=== PATIENT | female | born 1990 | race American Indian/Alaskan Native ===

== ENCOUNTER 2017-05-28 10:03 | Emergency (ER) | payer SELFPAY ==
[2017-05-28 10:13] VITALS: BMI 23.4
[2017-05-28 10:14] VITALS: TEMP 98.2
[2017-05-28 10:37] LABS: HCG,QUALITATIVE URINE NEGATIVE (NEGATIVE)
--- NOTE | 2017-05-28 10:40 | C.PDOC ---
History Of Present Illness 26 y/o female presents to ED with complaints of vaginal spotting and cramping for 2 days. Patient states she thinks she may be but has not taken previous tests. Patient denies fever, chills, n/v/d or any other complaints at this time. Time Seen by Provider: 05/28/17 10:16 Chief Complaint (Nursing): Female Genitourinary History Per: Patient History/Exam Limitations: no limitations Onset/Duration Of Symptoms: Days Current Symptoms Are (Timing): Still Present Quality Of Discomfort: Cramping Past Medical History Reviewed: Historical Data, Nursing Documentation, Vital Signs Vital Signs: Last Vital Signs Temp 98.2 F 05/28/17 11:27 Pulse 75 05/28/17 11:27 Resp 18 05/28/17 11:27 BP 104/70 05/28/17 11:27 Pulse Ox 99 05/28/17 11:27 - Medical History PMH: Asthma - [facility] Procedures EXTRACTION OF POC, LOW CERVICAL, OPEN APPROACH (04/02/16) Family History: States: Unknown Family Hx - Social History Hx Alcohol Use: No Hx Substance Use: No - Immunization History Hx Tetanus Toxoid Vaccination: No Hx Influenza Vaccination: No Hx Pneumococcal Vaccination: No Review Of Systems Except As Marked, All Systems Reviewed And Found Negative. Constitutional: Negative for: Fever, Chills Gastrointestinal: Negative for: Nausea, Vomiting, Diarrhea Genitourinary: Positive for: Vaginal Bleeding. Negative for: Dysuria Skin: Negative for: Rash Physical Exam - Physical Exam Appears: Non-toxic, No Acute Distress Skin: Normal Color, Warm Head: Atraumatic, Normacephalic Oral Mucosa: Moist Cardiovascular: Rhythm Regular, No Murmur Respiratory: Normal Breath Sounds, No Rales, No Rhonchi, No Wheezing Gastrointestinal/Abdominal: Tenderness (Mild suprapubic), No Guarding, No Rebound Extremity: Normal ROM, Capillary Refill (<2 seconds) Neurological/Psych: Oriented x3 ED Course And Treatment - Laboratory Results Urine POC: Negative O2 Sat by Pulse Oximetry: 100 (RA) Pulse Ox Interpretation: Normal Progress Note: Treated with macrobid 100 mg PO. On re-evaluation abdomen soft non-tender Medical Decision Making Medical Decision Making: Plan: test will be given if negative patient will be discharged home Progress: test was negative, patient will be discharge home and advised to follow up with OBGYN. Disposition Counseled Patient/Family Regarding: Studies Performed, Diagnosis, Need For Followup, Rx Given - Disposition Referrals: [facility] [Outside] [facility] [Outside] Disposition: HOME/ ROUTINE Disposition Time: 11:30 Condition: STABLE Additional Instructions: Return to ED if any increase symptoms Prescriptions: Nitrofurantoin Macrocrystals [Macrobid] 1 cap PO BID #14 cap Instructions: Urinary Tract Infection in Women (ED) - POA Present On Arrival: None - Clinical Impression Clinical Impression: UTI (urinary tract infection) - Scribe Statement The provider has reviewed the documentation as recorded by the Scribyariel Li All medical record entries made by the Donaldibyariel were at my direction and personally dictated by me. I have reviewed the chart and agree that the record accurately reflects my personal performance of the history, physical exam, medical decision making, and the department course for this patient. I have also personally directed, reviewed, and agree with the discharge instructions and disposition.
[2017-05-28 11:01] LABS: SQUAMOUS EPITHIAL 4 /hpf (0-5); URINE BACTERIA RARE (<OCC); URINE BILIRUBIN NEGATIVE (NEGATIVE); URINE BLOOD 3+ (NEGATIVE); URINE CLARITY Hazy (Clear); URINE COLOR Yellow (YELLOW); URINE GLUCOSE (UA) NORMAL (Normal); URINE LEUKOCYTE ESTERASE 2+ Leu/uL (Negative); URINE NITRATE NEGATIVE (NEGATIVE); URINE PROTEIN 2+ mg/dL (NEGATIVE); URINE UROBILINOGEN NORMAL mg/dL (0.2-1.0)
[2017-05-28 11:29] VITALS: BP 104/70; PULSE 75; RESP 18
[2017-05-28 16:27] VITALS: O2SAT 100
== END 2017-05-28 11:28 | disposition home or self-care (01) ==
LOC: C.ER 10:03
DX: N39.0 Urinary tract infection, site not specified (principal)

== ENCOUNTER 2018-07-05 13:51 | Emergency (ER) | payer MEDICAID ==
[2018-07-05 13:51] VITALS: BMI 23.4
[2018-07-05 14:08] VITALS: TEMP 98.1
--- NOTE | 2018-07-05 15:08 | C.PDOC ---
History Of Present Illness 27 year old female, , presents to ED for evaluation of LLQ abdominal pain that developed 2 days ago. Notes her last menstrual period was in end of April. Pt is aware that she is but is unsure of how far along the is, states she has not had an ultrasound yet. Otherwise, denies n/v/d , fever, chills, back pain, dysuria, vaginal bleeding, or vaginal discharge. Time Seen by Provider: 07/05/18 14:10 Chief Complaint (Nursing): Abdominal Pain History Per: Patient History/Exam Limitations: no limitations Onset/Duration Of Symptoms: Days (2) Current Symptoms Are (Timing): Still Present Location Of Pain/Discomfort: LLQ Radiation Of Pain To:: None Quality Of Discomfort: "Pain" Associated Symptoms: denies: Nausea, Vomiting, Diarrhea, Loss Of Appetite, Back Pain, Constipation, Urinary Symptoms Exacerbating Factors: None Alleviating Factors: None Recent travel outside of the [place]: No Additional History Per: Patient Abnormal Vaginal Bleeding: No Last Menstral Period: "end of April" : 2 Para: 1 Past Medical History Reviewed: Historical Data, Nursing Documentation, Vital Signs Vital Signs: Last Vital Signs Temp 98.1 F 07/05/18 16:47 Pulse 66 07/05/18 16:47 Resp 16 07/05/18 16:47 BP 109/71 07/05/18 16:47 Pulse Ox 97 07/05/18 16:49 - Medical History PMH: Asthma Denies: Chronic Kidney Disease Surgical History: Denies: Appendectomy - [facility] Procedures EXTRACTION OF POC, LOW CERVICAL, OPEN APPROACH (04/02/16) Family History: States: Unknown Family Hx - Social History Hx Alcohol Use: No Hx Substance Use: No - Immunization History Hx Tetanus Toxoid Vaccination: No Hx Influenza Vaccination: No Hx Pneumococcal Vaccination: No Review Of Systems Except As Marked, All Systems Reviewed And Found Negative. Constitutional: Negative for: Fever, Chills Gastrointestinal: Positive for: Abdominal Pain (LLQ). Negative for: Nausea, Vomiting, Diarrhea, Constipation Genitourinary: Negative for: Dysuria, Frequency, Hematuria, Vaginal Discharge, Vaginal Bleeding Musculoskeletal: Negative for: Back Pain Physical Exam - Physical Exam Appears: Non-toxic, No Acute Distress Skin: Normal Color, Warm, Dry Head: Atraumatic, Normacephalic Eye(s): bilateral: Normal Inspection Oral Mucosa: Moist Neck: Supple Chest: Symmetrical Cardiovascular: Rhythm Regular, No Murmur Respiratory: Normal Breath Sounds, No Rales, No Rhonchi, No Wheezing Gastrointestinal/Abdominal: Normal Exam, Soft, No Tenderness, No Guarding, No Rebound Back: No CVA Tenderness Extremity: Normal ROM Neurological/Psych: Oriented x3, Normal Speech ED Course And Treatment - Laboratory Results Result Diagrams: 07/05/18 15:25 07/05/18 15:25 O2 Sat by Pulse Oximetry: 97 (RA) Pulse Ox Interpretation: Normal - CT Scan/US OB CT Other Rad Studies (CT/US): Read By Radiologist, Radiology Report Reviewed CT/US Interpretation: Findings: Uterus: 8.4 x 6.1 x 6.8 centimeters. Heterogeneous echotexture. Anteverted. Cervix measures 2.3 centimeters. Intrauterine gestational sac measuring 4.1 centimeters corresponding to a gestational age of 9 weeks 3 days. Yolk sac measures 2.2 millimeters. Campbell- rump length measures 2.7 centimeters corresponding to a gestational age of 9 weeks and 4 days. heart rate of 156 beats per minute. Suggestion of a small amount of possible subchorionic hemorrhage adjacent to the right aspect of the gestational sac measuring 1.5 x 0.3 x 1.9 centimeters. Right ovary: 3.3 x 1.8 x 3 1 centimeters. Normal flow. Left ovary: 2.8 x 1.9 x 2.6 centimeters. Normal flow. Impression: Intrauterine corresponding to a gestational age of 9 weeks and 4 days with crown-rump length of 2.7 centimeters. heart rate of 156 beats per minute. Suggestion of a small amount of possible subchorionic hemorrhage adjacent to the right aspect of the gestational sac measuring 1.5 x 0.3 x 1.9 centimeters. Limited 1st trimester ultrasound for viability purposes only. Continued interval followup with serial ultrasound, serial HCG levels, and gynecological consultation would be helpful if clinically indicated. Medical Decision Making Medical Decision Making: Plan: * Blood work * OB Ultrasound OB ultrasound done, patient with [facility]. Labs unremarkable. Results discussed with patient, advised followup with operating room tech, return to the ED for any new or worsening symptoms, including vaginal bleeding. Disposition - Disposition Disposition: HOME/ ROUTINE Disposition Time: 16:47 Condition: STABLE Additional Instructions: GISSELLE YODER, thank you for letting us take care of you today. Your provider was Mayra Pang MD and you were treated for ABD PAIN. The emergency medical care you received today was directed at your acute symptoms. If you were prescribed any medication, please fill it and take as directed. It may take several days for your symptoms to resolve. Return to the Emergency Department if your symptoms worsen, do not improve, or if you have any other problems. Please contact your doctor or call one of the physicians/clinics you have been referred to that are listed on the Patient Visit Information form that is included in your discharge packet. Bring any paperwork you were given at discharge with you along with any medications you are taking to your follow up visit. Our treatment cannot replace ongoing medical care by a primary care provider outside of the emergency department. Thank you for allowing the [facility] team to be part of your care today. If you had an X-Ray or CT scan: A Radiologist will review the ED reading if any change in treatment is needed we will contact you. If you had a blood, urine, or wound culture: It will take several days for the results, if any change in treatment is needed we will contact you. If you had an STI test: It will take 48 hours for the results. Please call after 1 week if you have not heard back. Instructions: - The Third Month Forms: [employer] (Guamanian) - Clinical Impression Clinical Impression: Abdominal pain during - Scribe Statement The provider has reviewed the documentation as recorded by the Maxim Rivers All medical record entries made by the Donaldibyariel were at my direction and personally dictated by me. I have reviewed the chart and agree that the record accurately reflects my personal performance of the history, physical exam, medical decision making, and the department course for this patient. I have also personally directed, reviewed, and agree with the discharge instructions and disposition.
[2018-07-05 15:29] LABS: BASO # 0.1 K/uL (0.0-0.2); BASO % 0.5 % (0.0-2.0); EOS # 0.2 K/uL (0.0-0.7); EOS % 1.9 % (0.0-4.0); HEMOGLOBIN 13.3 g/dL (11.0-16.0); LYMPH # 3.7 K/uL (1.0-4.3); LYMPH % 31.8 % (20.0-40.0); MEAN CELL VOLUME 88.3 fL (81.0-99.0); MEAN CORPUSCULAR HGB CONC 35.1 g/dL (33.0-37.0); MEAN PLATELET VOLUME 7.7 fL (7.2-11.7); MONO # 0.8 K/uL (0.0-0.8); MONO % 6.5 % (0.0-10.0); NEUT % 59.3 % (50.0-75.0); RBC 4.29 Mil/uL (3.80-5.20); RED CELL DISTRIBUTION WIDTH 13.9 % (11.5-14.5); WHITE BLOOD COUNT 11.8 K/uL (4.8-10.8)
[2018-07-05 15:39] LABS: BLOOD UREA NITROGEN 9 mg/dL (7-17); CALCIUM 9.2 mg/dl (8.6-10.4); GFR AFRICAN-AMERICAN > 60; GFR NON-AFRICAN AMERICAN > 60
--- NOTE | 2018-07-05 16:09 | US ---
Pelvic ultrasound History: . Pain. Comparison: None available. Technique: Real-time sonography was performed through the pelvis utilizing transabdominal technique. Findings: Uterus: 8.4 x 6.1 x 6.8 centimeters. Heterogeneous echotexture. Anteverted. Cervix measures 2.3 centimeters. Intrauterine gestational sac measuring 4.1 centimeters corresponding to a gestational age of 9 weeks 3 days. Yolk sac measures 2.2 millimeters. Hallett-rump length measures 2.7 centimeters corresponding to a gestational age of 9 weeks and 4 days. heart rate of 156 beats per minute. Suggestion of a small amount of possible subchorionic hemorrhage adjacent to the right aspect of the gestational sac measuring 1.5 x 0.3 x 1.9 centimeters. Right ovary: 3.3 x 1.8 x 3 1 centimeters. Normal flow. Left ovary: 2.8 x 1.9 x 2.6 centimeters. Normal flow. Impression: Intrauterine corresponding to a gestational age of 9 weeks and 4 days with crown-rump length of 2.7 centimeters. heart rate of 156 beats per minute. Suggestion of a small amount of possible subchorionic hemorrhage adjacent to the right aspect of the gestational sac measuring 1.5 x 0.3 x 1.9 centimeters. Limited 1st trimester ultrasound for viability purposes only. Continued interval followup with serial ultrasound, serial HCG levels, and gynecological consultation would be helpful if clinically indicated.
[2018-07-05 16:48] VITALS: BP 109/71; PULSE 66; RESP 16
[2018-07-05 16:49] VITALS: O2SAT 97
== END 2018-07-05 16:48 | disposition home or self-care (01) ==
LOC: C.ER 13:51
DX: O26.891 Other specified pregnancy related conditions, first trimester (principal); R10.9 Unspecified abdominal pain; Z3A.09 9 weeks gestation of pregnancy